=== PATIENT | female | born 1955 | race Caucasian/White ===

== ENCOUNTER 2018-03-08 15:56 | Observation (INO) | payer MEDICARE, BC, SELFPAY ==
[2018-03-08 15:57] VITALS: BP 143/89; PULSE 88; RESP 16; TEMP 36.8; O2SAT 98; BMI 32.1
--- NOTE | 2018-03-08 16:23 | CT_ITS ---
STUDY: CT BRAIN WITHOUT CONTRAST REASON FOR EXAM: Female, 62 years old. Severe headache since chemotherapy 5 days ago, nausea/vomiting. Adrenal cancer with mets. RADIATION DOSAGE (If Supplied By Facility): CTDIvol = ( 44.99 ) mGy, DLP = ( 779.24 ) mGycm TECHNIQUE: Transaxial CT imaging of the brain was performed without administration of intravenous contrast material. Individualized dose optimization techniques were used for this CT. COMPARISON: 04.04.16. FINDINGS: Normal soft tissue structures. Normal calvarium. There is asymmetry of the ventricles consistent with an anatomic variant. There are areas of decreased attenuation within the white matter tracts of the supratentorial brain, consistent with microvascular disease changes. Normal basal ganglia and thalami. Normal brainstem. Normal cerebellum. There is no intracranial hemorrhage. There are no findings of an acute ischemic infarction. Normal visualized paranasal sinuses. CT/Brain/Head without Contrast IMPRESSION: Minimal stable Chronic involutional changes of the brain. Electronically Signed: Eric Klein MD at 17:52 EDT , Service support ,
[2018-03-08] MEDS: 0.9% Normal Saline 1,000 ML 999 ML IV ×3 (16:39→19:47)
[2018-03-08] MEDS: Hydrocortisone Sod Succinate 100 MG/2 ML Vial IV (16:39)
[2018-03-08] MEDS: Morphine 4 MG/ML Syringe IV ×2 (16:42→19:46)
[2018-03-08] MEDS: Ondansetron 4 MG/2 ML Vial IV (16:46)
[2018-03-08 16:50] LABS: Absolute Lymphocyte Count 0.73 X10^3/ul (0.83-4.51); Basophil# 0.02 X10^3/uL; Basophil% 0.3 % (0-1); Eosinophil# 0.01 X10^3/uL; Eosinophils% 0.1 % (0-5); Hematocrit 32.6 % (37-47); Hemoglobin 10.4 g/dl (12.0-15.0); Lymphocyte # 0.73 X10^3/ul (4.0); Lymphocyte % 10.1 % (19-41); Mean Corp Hgb Conc 31.9 g/gl (32-36); Mean Corpuscular Hgb 27.7 pg (27.0-32.0); Mean Corpuscular Volume 86.9 fL (81-99); Mean Platelet Vol. 8.3 fl (6.2-12.0); Monocyte# 0.46 X10^3/uL; Monocyte% 6.4 % (0-10); Neutrophil # 5.99 X10^3/uL (2.7-7.7); Platelet Count 280 K/mm3 (150-450); RBC Distribution Width CV 14.2 % (11.6-14.6); Red Blood Count 3.75 M/mm3 (4.2-5.4); White Blood Count 7.2 K/mm3 (4.4-11.0)
[2018-03-08 16:57] LABS: POSITIVE COUNT NO; POSITIVE DIFFERENTIAL NO; POSITIVE MORPHOLOGY NO
[2018-03-08 17:05] LABS: International Normalized Ratio 0.9; Partial Thromboplast Time 32.4 Seconds (24.1-36.2); Prothrombin Time (Protime)PT. 12.4 SECONDS (11.7-14.9)
[2018-03-08 17:06] LABS: ALB/GLOB Ratio 0.6 RATIO (0.9-2.4); AST(SGOT) 19 U/L (15-37); Alanine Aminotransfer ALT/SGPT 19 U/L (13-56); Albumin, Serum 2.8 g/dL (3.2-5.0); Alkaline Phosphatase 71 U/L (45-117); Anion Gap 9 (5-15); BUN 24 mg/dL (7-18); BUN/Creat Ratio 23.3 RATIO (10-20); Calcium,Total 8.4 mg/dL (8.5-10.1); Chloride 96 mmol/L (98-107); Creatinine, Serum 1.03 mg/dL (0.55-1.02); EST Glomerular Filtration Rate 58 mL/min (>60); Est Glom Filt Rate - Afr Amer 70 mL/min (>60); Estimated Creatinine Clearance 43.28 ml/min; Globulin 4.4 g/dL (2.2-4.2); Glucose 89 mg/dL (74-106); Magnesium 1.7 mg/dL (1.6-2.6); Phosphorus 1.6 mg/dL (2.5-4.9); Potassium 4.4 mmol/L (3.5-5.1); Protein, Total 7.2 g/dL (6.4-8.2); Sodium Level 129 mmol/L (136-145)
--- NOTE | 2018-03-08 17:25 | RAD_ITS ---
STUDY: X-RAY CHEST REASON FOR EXAM: Female, 62 years old. COMPLAINS OF HEADACHE, DIARRHEA SINCE CHEMO TX ON FRIDAY, TODAY N/V. CONCERNED SHE'S DEHYDRATED. HX OF ADRENAL CARCINOMA STAGE IV, WITH METS TECHNIQUE: Frontal and lateral views of the chest. COMPARISON: June 16, 2016 FINDINGS: Chronic appearing increased interstitial lung markings. There is a right Port-A-Cath and/or mediport in place. The tip is in the superior vena cava. There is an elevated right hemidiaphragm. There is no demonstrated pleural abnormality. Normal heart size. Normal mediastinum and mai. Normal visualized pulmonary arteries. There is atherosclerotic calcification of the aortic arch with tortuosity. There are diffuse degenerative changes of the visualized thoracic spine. There is degenerative osteoarthritis of the bilateral shoulders. There is no demonstrated abnormality of the visualized soft tissue structures of the upper abdomen. RAD/Chest PA and Lateral IMPRESSION: There are no acute findings. Electronically Signed: Eric Klein MD at 17:37 EDT , Service support ,
[2018-03-08 18:00] VITALS: BP 137/87; PULSE 73; RESP 16; O2SAT 95
[2018-03-08 18:13] LABS: Bacteria 0 SEEN /hpf (None Seen); Mucous, Urine 0 SEEN /hpf (<or=2+); Red Blood Cells-Urine 0 SEEN /hpf (0-5); White Blood Cells 0 SEEN /hpf (0-5)
[2018-03-08 18:18] LABS: Color, Urine Yellow (Yellow); Glucose, Dipstick Normal (Normal); Ketone-Dipstick Negative (Negative); Leukocyte Esterase-Dipstick Negative /ul (Negative); Nitrite-Dipstick Negative (Negative); Occult Blood-Urine 10 /ul (Negative); Protein-Dipstick 30 mg/dl (Negative); Specific Gravity, Urine 1.005 (1.002-1.030); Urine Bilirubin Dipstick Negative (Negative); Urine Clarity Clear (Clear); Urine Urobilinogen Normal (Normal); Urine pH 6.5 (5.0 - 8.0)
[2018-03-08 18:31] LABS: Squamous Epithelial Cells - UA 0-5 SEEN /hpf (5-10)
[2018-03-08 19:56] VITALS: BP 153/99; PULSE 79; RESP 22; O2SAT 95
[2018-03-08 20:27] VITALS: BP 149/89; PULSE 80; RESP 17; O2SAT 93
--- NOTE | 2018-03-08 21:30 | HP.PCM_ITS ---
Problem List (1) Hyponatremia Status: Acute (2) Adrenal Bety's syndrome Status: Chronic (3) Adrenal carcinoma Status: Chronic Comment: liver, lung mets palliative chemo (4) Chronic anemia Status: Chronic (5) Hypokalemia Status: Chronic (6) Obesity (BMI 30-39.9) Status: Chronic (7) Resistant hypertension Status: Chronic Comment: secondary to Bety History of Present Illness Date of Admission: 03/08/18 Chief Complaint: Hyponatremia The patient is a 62 year old female w/ h/o terminal metastatic adrenal carcinoma , adrenal insufficiency, chronic anemia, adrenal bety's syndrome, and HTN admitted for hyponatremia. She has been getting mitotane and temsirolimus. She gets temsirolimus every Friday and after the infusion, she always gets a headache. The headache is diffuse dull aching and occasional sharp head pain. Nothing made it better or worse. It would past few a few hours over the next few days but would usually resolved by / Friday. However, this time her headache has been severe and constant. It is affecting her ADLs. She also has severe n/v associated with the headache. She has been not able to keep much PO down. She also has diarrhea for the past few days. Diarrhea is worsen when she gets the infusion. She would have 5-6 loose watery bowel movement a day. Past Medical History Past Medical History (Chronic Problems): Chronic Problems Resistant hypertension (Chronic) secondary to Bety Hypokalemia (Chronic) Chronic anemia (Chronic) MRSA pneumonia (Chronic) Obesity (BMI 30-39.9) (Chronic) Adrenal Bety's syndrome (Chronic) Adrenal carcinoma (Chronic) liver, lung mets palliative chemo Allergies Penicillins Allergy (Verified 03/08/18 15:59) Anaphylaxis adhesive tape Adverse Reaction (Verified 03/08/18 15:59) Other blisters Home Medications: Ambulatory Orders Medication Instructions Recorded Nystatin 500,000U/5ML [Mycostatin] 5 ml PO 4X/DAY PRN PRN 07/14/15 Clonazepam [Klonopin] 1 mg PO TID 09/15/15 Ondansetron [Zofran Odt] 8 mg PO Q8H PRN PRN #10 09/16/15 Levothyroxine [Synthroid] 75 mcg PO DAILY 10/18/15 Ipratropium/Albuterol Sulfate 3 ml INHALATION Q4H PRN PRN 11/01/15 [Duoneb] Potassium Chloride [K-Dur] 20 meq PO TID 03/28/16 traMADol [Ultram] 50 - 100 mg PO Q4H PRN PRN 03/28/16 Loperamide [Imodium] 2 mg PO Q6H PRN PRN 05/03/16 Pantoprazole Sodium [Protonix] 40 mg PO DAILY #30 tablet 05/05/16 Hydrocortisone [Cortef] 10 mg PO DINNER 06/12/16 Hydrocortisone [Cortef] 20.5 mg PO BREAKFAST 06/12/16 Magnesium Oxide [Mag-Ox 400] 400 mg PO DAILY 06/12/16 Ascorbic Acid [C-1000] 2,000 mg PO DAILY 03/08/18 Bmx Liquid 10 ml PO Q4H PRN PRN 03/08/18 Cholecalciferol (Vitamin D3) 2,000 unit PO DAILY 03/08/18 [Vitamin D3] Dexamethasone [Decadron] 10 ml PO 4X/DAY 03/08/18 DiphenhydrAMINE [Benadryl] 50 mg PO TID PRN PRN 03/08/18 Diphenoxylate HCl/Atropine 1 - 2 each PO Q6H PRN PRN 03/08/18 [Diphenoxylate-Atrop 2.5-0.025] Docusate Sodium [Colace] 100 mg PO BID 03/08/18 Fluticasone 0.05% [Flonase Nasal 2 spray NASAL DAILY 03/08/18 [place]] Hydrocodone Bitart/Apap 5-325 1 - 2 tablet PO Q6H PRN PRN 03/08/18 [[place] 5MG-325MG] Mitotane [Lysodren] 500 mg PO TID 03/08/18 [place]-3 Fatty Acids/Fish Oil [Fish 1 each PO QODAY 03/08/18 Oil 1,000 mg Capsule] Spironolactone [Aldactone] 50 mg PO BID 03/08/18 Ubidecarenone [Co Q-10] 200 mg PO 03/08/18 Surgical History: noncontributory Psychiatric History: Anxiety, Depression CHARGE WEIGHER History: No pertinent CHARGE WEIGHER history Smoking Status: Never smoker Alcohol: None Drugs: None - *Family History Maternal History Items: - - Multiple myeloma Paternal History Items: Cancer, No pertinent history Sibling History Items: Diabetes Review of Systems Constitutional: Denies: Chills, Fever, Weight Change HEENT: Denies: Head Aches, Sinus Congestion, Sinus Drainage Cardiovascular: Denies: Chest Pain, Palpitations Respiratory: Denies: Cough, Shortness of breath at rest, Sputum production Gastrointestinal: Denies: Abdominal Pain, Nausea, Vomiting Genitourinary: Denies: Dysuria Musculoskeletal: Denies: Joint Pain, Joint Tenderness Skin: Denies: Rash, Wounds Neurological: Denies: Numbness, Tingling, Focal weakness Psychiatric: Denies: Anxiety, Depression, Homicidal Ideations, Suicidal Ideations Hematologic/ Lymphatic: Denies: Easy Bruising, Easy Bleeding VTE Information - Inpt Only VTE Present on Admission: No VTE Mechan Device Prophylaxis: SCD's VTE Pharm Prophylaxis ordered?: Yes Patient Problems: Active and Suspected Problems Hyponatremia (Acute) - Physical Exam General: Alert, Oriented x3, Cooperative HEENT: Atraumatic, PERRLA, EOMI, Normocephalic Neck: Supple, No JVD, Negative Carotid Bruits Lungs: Clear to auscultation, Normal air movement Cardiovascular: Regular rate, No murmurs Abdomen: Bowel Sounds Present, Soft, Non Tender Extremities: No edema, Capillary Refill Less than 3 Seconds Skin: No rashes, No breakdown Musculoskeletal: No Tenderness to Palpation of Joints or Extremities Neurological: Cranial nerves II-XII grossly intact Psych/Mental Status: Normal Affect, Appropriate Vital Signs Temp Pulse Resp BP Pulse Ox 98.2 F 80 17 149/89 H 93 03/08/18 15:57 03/08/18 20:27 03/08/18 20:27 03/08/18 20:27 03/08/18 20:27 Assessment/Plan All Active Problems Hyponatremia (Acute) 62 year old female w/ h/o terminal metastatic adrenal carcinoma, adrenal insufficiency, chronic anemia, adrenal bety's syndrome, and HTN admitted for hyponatremia. 1) Hyponatremia: Suspect hypovolemia hyponatremia. Will hydrate. Will repeat labs in AM. Will send for urine osmol, serum osmol, urine Na, and TSH. Will consider further workup, ie SIADH, if no improvement. 2) Diarrhea: Suspect secondary to temsirolimus. Will send for C. diff. Monitor. 3) Chronic issues: terminal metastic adrenal carcinoma, adrenal insufficiency, chronic anemia, adrenal bety's syndrome, and HTN. Resume home meds. Hold temsirolimus and lysodren. 4) Prophylaxis: SCD / heparin.
[2018-03-08 21:53] VITALS: BMI 31.6
--- NOTE | 2018-03-08 22:45 | NURSING ---
Dae blood off pt's port without any difficulty. Lab work since.
[2018-03-08 23:15] VITALS: BP 127/66; PULSE 67; RESP 16; TEMP 36.7; O2SAT 94
[2018-03-08 23:28] LABS: Thyroid Stim Hormone (TSH) < 0.01 uIU/mL (0.358-3.74)
[2018-03-08] MEDS: Heparin Injection (Vial) 5,000 UNIT/ML VIAL 5000 UNIT SC (23:52)
[2018-03-08] MEDS: Spironolactone 50 MG Tablet PO (23:53)
[2018-03-08] MEDS: Acetaminophen 325 MG Tablet 650 MG PO (23:59)
[2018-03-08] MEDS: clonazePAM 1 MG Tablet PO (23:59)
[2018-03-09 00:10] LABS: Urine Sodium 61 mmol/L (Not Establ.)
[2018-03-09] MEDS: 0.9% NaCl VAD Flush 10 ML IV ×7 (00:20→13:01)
[2018-03-09 00:56] LABS: Osmolality, Urine 339 mOsm/KG
[2018-03-09 00:56] LABS: Osmolality, Serum 277 mOsm/KG (280-301)
--- NOTE | 2018-03-09 01:26 | ED.VISSUMM ---
- ER Visit Summary Date of Service: 03/09/18 Chief Complaint: Headache History of Present Illness: The patient is a [address] Park and Dr. Lomax. She has a history of adrenal cancer with metastases to liver and lungs. She has been on chemo since October. Her last dose was Friday. She reports that she typically gets sick the day of chemo and the next day. States that this week she is not bouncing back. She states that she has had a very poor appetite. She complains of abdominal pain that is chronic and unchanged. She has been nausea and vomited 5 times. No blood or emesis. She reports she has had diarrhea 4-5 times today and 3 times yesterday. No blood in her stools. She has had frequent urination but no dysuria. Patient reports that she has had a headache since her chemo that increases in the evening. She describes it as a throbbing, sharp pain that is 10 at 10 worsening 7-10 currently. Is worsened by bending over. She is sensitive to light. She taken [place] without relief. Is also taking Zofran without relief. Patient reports she is lightheadedness worsens when she stands. She has not had any syncope. She complains of generalized weakness. She has paresthesias that are chronic and unchanged. Of note patient has a history of adrenal insufficiency and is on hydrocortisone. She threw up her evening dose of hydrocortisone. Physical Examination: Vitals: Stable. Afebrile. General: Well-nourished and well-developed. Head: Normocephalic atraumatic. Neck: Supple, no lymphadenopathy. No JVD. Nontender. Cardiovascular: Regular rate and rhythm. No murmurs. Respiratory: No respiratory distress. Clear to auscultation bilaterally. Abdominal: Soft, mild diffuse tenderness to palpation, nondistended, normal bowel sounds. No guarding, rebound, or peritoneal signs. Back: Nontender. Extremities: Nontender, no edema. Skin: Normal color, no rash. Neurologic: Alert and oriented ?3. Cranial nerves II through XII are intact. Normal strength and sensation. Psych: Normal affect. Test Results: Chest x-ray shows chronic changes. CT brain shows chronic changes. CBC is marked for an H&H of 10.4 and 32.6, 7 neutrophils 83, lymphocytes 10. Chem-7 is more for sodium 129, chloride 96, BUN 24, creatinine 1.03. BUN creatinine ratio is 23.3. LFTs marked for albumin 2.8 globulin 4.4. Coags are normal. UA is normal. Emergency Department Course and Treatment: Patient was given 2 L normal saline. She was given Zofran, morphine, hydrocortisone IV. She continues to have a severe headache. Treatment Plan: Patient was discussed with Dr. Michael. She will be admitted to the hospital for further evaluation and treatment. Disposition: Admitted in improved condition Impression: 1. Renal cancer on chemotherapy. 2. Vomiting/diarrhea. 3. Dehydration. 4. Hyponatremia. 5. Cephalgia. This note was generated with [employer] dictation software. It may contain incorrect words, spelling, and punctuation that were not noted in review of the chart prior to signing ED Disposition - Plan for ED Patient: Disposition: Acute Care Hospital [facility] Chief Complaint: Nausea/Vomiting
[2018-03-09] MEDS: 0.9% Normal Saline 1,000 ML 125 ML IV ×2 (01:28→10:28)
[2018-03-09 02:04] VITALS: BMI 31.6
[2018-03-09] MEDS: Acetaminophen 325 MG Tablet 650 MG PO (04:29)
[2018-03-09 04:30] VITALS: BP 125/73; PULSE 85; RESP 18; TEMP 36.5; O2SAT 94
[2018-03-09] MEDS: Ondansetron ODT 4 MG Tablet 8 MG PO (04:34)
[2018-03-09] MEDS: clonazePAM 1 MG Tablet PO (06:06)
[2018-03-09] MEDS: Heparin Injection (Vial) 5,000 UNIT/ML VIAL 5000 UNIT SC (06:08)
[2018-03-09] MEDS: Levothyroxine 75 MCG Tablet PO (06:08)
[2018-03-09 06:52] LABS: Absolute Lymphocyte Count 0.63 X10^3/ul (0.83-4.51); Basophil# 0.01 X10^3/uL; Basophil% 0.2 % (0-1); Eosinophil# 0.07 X10^3/uL; Eosinophils% 1.7 % (0-5); Hematocrit 27.3 % (37-47); Hemoglobin 8.6 g/dl (12.0-15.0); Lymphocyte # 0.63 X10^3/ul (4.0); Lymphocyte % 14.9 % (19-41); Mean Corp Hgb Conc 31.5 g/gl (32-36); Mean Corpuscular Hgb 28.2 pg (27.0-32.0); Mean Corpuscular Volume 89.5 fL (81-99); Mean Platelet Vol. 8.3 fl (6.2-12.0); Monocyte# 0.51 X10^3/uL; Monocyte% 12.1 % (0-10); Neutrophil % 71.1 % (47-70); Platelet Count 269 K/mm3 (150-450); RBC Distribution Width SD 44.8 fl (35.1-43.9); Red Blood Count 3.05 M/mm3 (4.2-5.4); White Blood Count 4.2 K/mm3 (4.4-11.0)
[2018-03-09 07:03] LABS: POSITIVE COUNT NO; POSITIVE DIFFERENTIAL NO; POSITIVE MORPHOLOGY NO
[2018-03-09 07:04] LABS: Anion Gap 7 (5-15); BUN 16 mg/dL (7-18); BUN/Creat Ratio 19.5 RATIO (10-20); Calcium,Total 7.5 mg/dL (8.5-10.1); Chloride 109 mmol/L (98-107); Creatinine, Serum 0.82 mg/dL (0.55-1.02); EST Glomerular Filtration Rate 75 mL/min (>60); Est Glom Filt Rate - Afr Amer 91 mL/min (>60); Estimated Creatinine Clearance 54.37 ml/min; Glucose 72 mg/dL (74-106); Potassium 3.9 mmol/L (3.5-5.1); Sodium Level 139 mmol/L (136-145)
[2018-03-09] MEDS: Hydrocortisone 10 MG Tablet 25 MG PO (08:08)
[2018-03-09 10:09] VITALS: BP 105/58; PULSE 88; RESP 16; TEMP 36.7; O2SAT 95
--- NOTE | 2018-03-09 10:15 | PCM.PN.HOSP ---
Subjective: Patient is a 62-year-old female with a history of terminal metastatic adenocarcinoma, adrenal insufficiency, chronic anemia, Bernadette's syndrome and hypertension. She has been getting chemotherapy with mitotaine and temsirolimus. Patient was admitted with a plan of headache as well as an nausea and vomiting. She had also had assisted her for a few days. She was admitted and is being managed for hyponatremia and headache. Patient seen and examined. Still complains of a headache which is global in nature and usually occurs after chemotherapy. She denies fever or chills, any cough or chest pain, any shortness of breath, any abdominal pain. Diarrhea and vomiting have resolved since she was admitted. Vitals/I&O's: Vital Signs Temp Pulse Resp BP Pulse Ox 98.1 F 88 16 105/58 L 95 03/09/18 10:03/09/18 10:03/09/18 10:09 03/09/18 10:03/09/18 10:09 Oxygen Delivery Method Room Air Weight: 170 lb Body Mass Index (BMI) 31.6 Intake and Output for Last 24 Hours 03/07/18 03/08/18 03/09/18 23:59 23:59 23:59 Intake Total 1974 Output Total 300 / 300 Balance 1675 / 1675 General: Alert, Oriented x3, Cooperative, No apparent distress HEENT: Atraumatic, PERRLA, EOMI, Normocephalic Oral: Moist Mucosa Neck: Supple, No JVD, Negative Carotid Bruits Lungs: Clear to auscultation, Normal air movement, No rhonchi, No wheeze, No rales Cardiovascular: Regular rate, Regular Rhythm, Normal S1, Normal S2, No murmurs Abdomen: Bowel Sounds Present, Soft, Non Tender, Non-Distended, No Hepato-splenomegaly Extremities: No clubbing, No cyanosis, No edema, Capillary Refill Less than 3 Seconds Skin: No rashes, No breakdown Musculoskeletal: No Tenderness to Palpation of Joints or Extremities Lymphatic: No Cervical, Supraclavicular, or Inguinal Adenopathy Neurological: Cranial nerves II-XII grossly intact Psych/Mental Status: Normal Affect, Appropriate, Alert and oriented to time, place, person, mood and affect Laboratory Results 03/08/18 22:53: Troponin I < 0.015, TSH < 0.01 L 03/08/18 22:53: Serum Osmolality 277 L 03/08/18 22:53: CK Isoenzymes Pending, CK-MM (CK-3) Pending, CK-MB (CK-2) Pending, CK-BB (CK-1) Pending 03/08/18 23:35: Ur Random Sodium 61 03/08/18 23:35: Urine Osmolality 339 03/09/18 06:35: WBC 4.2 L, RBC 3.05 L, Hgb 8.6 L, Hct 27.3 L, MCV 89.5, MCH 28.2, MCHC 31.5 L, RDW 14.0, RDW Differential 44.8 H, Plt Count 269, MPV 8.3, Immature Gran % (Auto) 0.000, Neut % (Auto) 71.1 H, Lymph % (Auto) 14.9 L, [place] % (Auto) 12.1 H, Eos % (Auto) 1.7, Baso % (Auto) 0.2, Absolute Neuts (auto) 3.0, Absolute Lymphs (auto) 0.63 L, Total Counted Not Reportable 03/09/18 06:35: Sodium 139, Potassium 3.9, Chloride 109 H, Carbon Dioxide 23.0, Anion Gap 7, BUN 16, Creatinine 0.82, Estim Creat Clear Calc 54.37, Est GFR (MDRD) Af Amer 91, Est GFR (MDRD) Non-Af 75, BUN/Creatinine Ratio 19.5, Glucose 72 L, Calcium 7.5 L 03/09/18 06:35: Cortisol 19.50 Current Medications Acetaminophen (Tylenol) 650 mg PO Q4H PRN PRN PRN Reason: PAIN Last Admin: 03/09/18 04:29 Dose: 650 mg Albuterol/Ipratropium (Duoneb) 3 ml INHALATION Q4H PRN PRN PRN Reason: SHORTNESS OF BREATH Ascorbic Acid (Vitamin C) 2,000 mg PO DAILY [facility]IK Cholecalciferol (Vitamin D) 2,000 unit PO DAILY [facility]IK Clonazepam (Klonopin) 1 mg PO TID MALIK Last Admin: 03/09/18 06:06 Dose: 1 mg Dexamethasone (Dexamethasone Intensol) 1 mg PO 4X/DAY PRN PRN Diphenhydramine HCl (Benadryl) 50 mg PO TID PRN PRN PRN Reason: ITCHING Fluticasone Propionate (Flonase Nasal [place]) 2 spray NASAL DAILY [facility] Heparin Sodium (Beef Lung) (Heparin 500 Unit/5 Ml (100/Ml)) 500 unit IV UD PRN PRN Reason: HEPARIN FLUSH Heparin Sodium (Porcine) (Heparin Na) 5,000 unit SC Q8 [facility] Last Admin: 03/09/18 06:08 Dose: 5,000 units Hydrocortisone (Cortef) 10 mg PO DINNER [facility] Hydrocortisone (Cortef) 25 mg PO BREAKFAST [facility] Last Admin: 03/09/18 08:08 Dose: 25 mg Sodium Chloride () 1,000 mls @ 125 mls/hr IV .Q8H [facility] Last Admin: 03/09/18 01:28 Dose: 125 mls/hr Levothyroxine Sodium (Synthroid) 75 mcg PO DAILY@0600 [facility] Last Admin: 03/09/18 06:08 Dose: 75 mcg Lidocaine/Diphenhydr/Alum/Mg/Simeth () 10 ml PO Q4H PRN PRN PRN Reason: sores Loperamide HCl (Imodium) 2 mg PO Q6H PRN PRN PRN Reason: diarrhea Magnesium Hydroxide (Milk Of Magnesia) 30 ml PO DAILY PRN PRN PRN Reason: Constipation Nutritional Formula (Lactose Free) (Ensure Enlive) 120 ml PO 4X/DAY [facility] Nystatin (Nystatin) 500,000 unit PO 4X/DAY PRN PRN PRN Reason: mouth discomfort [id number] Ethyl Esters (Lov[place]) 1 gm PO QODAY [facility] Ondansetron HCl (Zofran Odt) 8 mg PO Q8H PRN PRN PRN Reason: NAUSEA Last Admin: 03/09/18 04:34 Dose: 8 mg Pantoprazole Sodium (Protonix) 40 mg PO DAILY [facility] Potassium Chloride (K-Dur) 20 meq PO TID [facility] Last Admin: 03/09/18 06:07 Dose: 20 meq Sodium Chloride () 10 ml IV UD PRN PRN Reason: VAD FLUSH Last Admin: 03/09/18 06:32 Dose: 10 ml Spironolactone (Aldactone) 50 mg PO BID [facility] Last Admin: 03/08/18 23:53 Dose: 50 mg Medical Necessity - Tobacco Use Smoking Status: Former smoker Assessment/Plan All Active Problems Hyponatremia (Acute) 62 y/o female with a history of terminal metastatic adrenal carcinoma, adrenal insufficiency and chronic anemia, as well as Makanda's syndrome and HTN. She was admitted with a complaint of diarrhea, vomiting and headache. 1. Hypovolemic hyponatremia due to diarrhea and vomiting. Seen and examined. Diarrhea and vomiting have resolved. Hyponatremia has resolved and sodium is now 139 serum osmolality was 277 which confirms hypovolemic hypotonic hyponatremia will monitor ZOfran prn for vomiting 2. Diarrhea likely a side effect of the chemotherapy (temsirolimus) resolved. Diarrhea has resolved, and patient is not having any more diarrhea unable to do C Diff as diarrhea has resolved 3. Metastatic adrenal carcinoma with adrenal insufficiency Stable. Having chemotherapy. Next Chemotherapy session is tomorrow. And want her to have a break from chemotherapy as they think that she is suffering from too many side effects from it. To have discussion with Dr Sanchez about chemotherapy. Next session is tomorrow. 4. Headache Has headache which usually occurs after chemotherapy. Also takes several pain meds including Tylenol and [place] for pain which may be contribution to medication overuse headache. I counseled patient about cutting back on her pain meds. She also said that headache is worsened and assisted with light. This sounds micronized in nature and so she is now willing to get on his pain meds will add on Fioricet for a few days to see how she does. Prescription for Fioricet given for 20 tablets. 0ARRS checked,no red flags seen. Had a head CT which showed normal soft tissues and normal calvarium, with minimal stable chronic involutional changes of the brain. 5. Chronic anemia: stable on iron replacements 6. hypertension: controlled. on spironolactone. 7. Adrenal insufficiency: on hydrocortisone and dexamethasone 8. hypothyroidism: on synthroid. 9. DVT prophylaxis: heparin 10. GI prophylaxis: PPI Disposition: will dc home today. To follow up with PCP and oncologist. This note was generated with [employer] software. It may contain incorrect words, spelling, and punctuation that were not noted in checking the note before signing. Code Visit OBSV E&M: 22431 Subsequent observation care L3
--- NOTE | 2018-03-09 10:34 | PN_ITS ---
Subjective: Patient is a 62-year-old female with a history of terminal metastatic adenocarcinoma, adrenal insufficiency, chronic anemia, Bernadette's syndrome and hypertension. She has been getting chemotherapy with mitotaine and temsirolimus. Patient was admitted with a plan of headache as well as an nausea and vomiting. She had also had assisted her for a few days. She was admitted and is being managed for hyponatremia and headache. Patient seen and examined. Still complains of a headache which is global in nature and usually occurs after chemotherapy. She denies fever or chills, any cough or chest pain, any shortness of breath, any abdominal pain. Diarrhea and vomiting have resolved since she was admitted. Vitals/I&O's: Vital Signs Temp Pulse Resp BP Pulse Ox 98.1 F 88 16 105/58 L 95 03/09/18 10:03/09/18 10:03/09/18 10:09 03/09/18 10:03/09/18 10:09 Oxygen Delivery Method Room Air Weight: 170 lb Body Mass Index (BMI) 31.6 Intake and Output for Last 24 Hours 03/07/18 03/08/18 03/09/18 23:59 23:59 23:59 Intake Total 1974 Output Total 300 / 300 Balance 1675 / 1675 General: Alert, Oriented x3, Cooperative, No apparent distress HEENT: Atraumatic, PERRLA, EOMI, Normocephalic Oral: Moist Mucosa Neck: Supple, No JVD, Negative Carotid Bruits Lungs: Clear to auscultation, Normal air movement, No rhonchi, No wheeze, No rales Cardiovascular: Regular rate, Regular Rhythm, Normal S1, Normal S2, No murmurs Abdomen: Bowel Sounds Present, Soft, Non Tender, Non-Distended, No Hepato- splenomegaly Extremities: No clubbing, No cyanosis, No edema, Capillary Refill Less than 3 Seconds Skin: No rashes, No breakdown Musculoskeletal: No Tenderness to Palpation of Joints or Extremities Lymphatic: No Cervical, Supraclavicular, or Inguinal Adenopathy Neurological: Cranial nerves II-XII grossly intact Psych/Mental Status: Normal Affect, Appropriate, Alert and oriented to time, place, person, mood and affect Laboratory Results 03/08/18 22:53: Troponin I < 0.015, TSH < 0.01 L 03/08/18 22:53: Serum Osmolality 277 L 03/08/18 22:53: CK Isoenzymes Pending, CK-MM (CK-3) Pending, CK-MB (CK-2) Pending, CK-BB (CK-1) Pending 03/08/18 23:35: Ur Random Sodium 61 03/08/18 23:35: Urine Osmolality 339 03/09/18 06:35: WBC 4.2 L, RBC 3.05 L, Hgb 8.6 L, Hct 27.3 L, MCV 89.5, MCH 28.2 , MCHC 31.5 L, RDW 14.0, RDW Differential 44.8 H, Plt Count 269, MPV 8.3, Immature Gran % (Auto) 0.000, Neut % (Auto) 71.1 H, Lymph % (Auto) 14.9 L, [place] % (Auto) 12.1 H, Eos % (Auto) 1.7, Baso % (Auto) 0.2, Absolute Neuts (auto) 3.0 , Absolute Lymphs (auto) 0.63 L, Total Counted Not Reportable 03/09/18 06:35: Sodium 139, Potassium 3.9, Chloride 109 H, Carbon Dioxide 23.0, Anion Gap 7, BUN 16, Creatinine 0.82, Estim Creat Clear Calc 54.37, Est GFR ( MDRD) Af Amer 91, Est GFR (MDRD) Non-Af 75, BUN/Creatinine Ratio 19.5, Glucose 72 L, Calcium 7.5 L 03/09/18 06:35: Cortisol 19.50 Current Medications Acetaminophen (Tylenol) 650 mg PO Q4H PRN PRN PRN Reason: PAIN Last Admin: 03/09/18 04:29 Dose: 650 mg Albuterol/Ipratropium (Duoneb) 3 ml INHALATION Q4H PRN PRN PRN Reason: SHORTNESS OF BREATH Ascorbic Acid (Vitamin C) 2,000 mg PO DAILY MALIK Cholecalciferol (Vitamin D) 2,000 unit PO DAILY MALIK Clonazepam (Klonopin) 1 mg PO TID MALIK Last Admin: 03/09/18 06:06 Dose: 1 mg Dexamethasone (Dexamethasone Intensol) 1 mg PO 4X/DAY PRN PRN Diphenhydramine HCl (Benadryl) 50 mg PO TID PRN PRN PRN Reason: ITCHING Fluticasone Propionate (Flonase Nasal [place]) 2 spray NASAL DAILY [facility] Heparin Sodium (Beef Lung) (Heparin 500 Unit/5 Ml (100/Ml)) 500 unit IV UD PRN PRN Reason: HEPARIN FLUSH Heparin Sodium (Porcine) (Heparin Na) 5,000 unit SC Q8 [facility] Last Admin: 03/09/18 06:08 Dose: 5,000 units Hydrocortisone (Cortef) 10 mg PO DINNER [facility] Hydrocortisone (Cortef) 25 mg PO BREAKFAST [facility] Last Admin: 03/09/18 08:08 Dose: 25 mg Sodium Chloride () 1,000 mls @ 125 mls/hr IV .Q8H [facility] Last Admin: 03/09/18 01:28 Dose: 125 mls/hr Levothyroxine Sodium (Synthroid) 75 mcg PO DAILY@0600 [facility] Last Admin: 03/09/18 06:08 Dose: 75 mcg Lidocaine/Diphenhydr/Alum/Mg/Simeth () 10 ml PO Q4H PRN PRN PRN Reason: sores Loperamide HCl (Imodium) 2 mg PO Q6H PRN PRN PRN Reason: diarrhea Magnesium Hydroxide (Milk Of Magnesia) 30 ml PO DAILY PRN PRN PRN Reason: Constipation Nutritional Formula (Lactose Free) (Ensure Enlive) 120 ml PO 4X/DAY [facility] Nystatin (Nystatin) 500,000 unit PO 4X/DAY PRN PRN PRN Reason: mouth discomfort Silbx-5-[id number] Ethyl Esters (Lovaza) 1 gm PO QODAY [facility] Ondansetron HCl (Zofran Odt) 8 mg PO Q8H PRN PRN PRN Reason: NAUSEA Last Admin: 03/09/18 04:34 Dose: 8 mg Pantoprazole Sodium (Protonix) 40 mg PO DAILY [facility] Potassium Chloride (K-Dur) 20 meq PO TID [facility] Last Admin: 03/09/18 06:07 Dose: 20 meq Sodium Chloride () 10 ml IV UD PRN PRN Reason: VAD FLUSH Last Admin: 03/09/18 06:32 Dose: 10 ml Spironolactone (Aldactone) 50 mg PO BID [facility] Last Admin: 03/08/18 23:53 Dose: 50 mg Medical Necessity - Tobacco Use Smoking Status: Former smoker Assessment/Plan All Active Problems Hyponatremia (Acute) 62 y/o female with a history of terminal metastatic adrenal carcinoma, adrenal insufficiency and chronic anemia, as well as Bernadette's syndrome and HTN. She was admitted with a complaint of diarrhea, vomiting and headache. 1. Hypovolemic hyponatremia due to diarrhea and vomiting. * Seen and examined. Diarrhea and vomiting have resolved. * Hyponatremia has resolved and sodium is now 139 serum osmolality was 277 which confirms hypovolemic hypotonic hyponatremia * will monitor * ZOfran prn for vomiting * 2. Diarrhea likely a side effect of the chemotherapy (temsirolimus) * resolved. Diarrhea has resolved, and patient is not having any more diarrhea * unable to do C Diff as diarrhea has resolved * 3. Metastatic adrenal carcinoma with adrenal insufficiency * Stable. Having chemotherapy. * Next Chemotherapy session is tomorrow. And want her to have a break from chemotherapy as they think that she is suffering from too many side effects from it. * To have discussion with Dr Sanchez about chemotherapy. Next session is tomorrow. * 4. Headache * Has headache which usually occurs after chemotherapy. * Also takes several pain meds including Tylenol and [place] for pain which may be contribution to medication overuse headache. I counseled patient about cutting back on her pain meds. She also said that headache is worsened and assisted with light. This sounds micronized in nature and so she is now willing to get on his pain meds will add on Fioricet for a few days to see how she does. * Prescription for Fioricet given for 20 tablets. 0ARRS checked,no red flags seen. * Had a head CT which showed normal soft tissues and normal calvarium, with minimal stable chronic involutional changes of the brain. * 5. Chronic anemia: stable on iron replacements 6. hypertension: controlled. on spironolactone. 7. Adrenal insufficiency: on hydrocortisone and dexamethasone 8. hypothyroidism: on synthroid. 9. DVT prophylaxis: heparin 10. GI prophylaxis: PPI Disposition: will dc home today. To follow up with PCP and oncologist. This note was generated with [employer] software. It may contain incorrect words, spelling, and punctuation that were not noted in checking the note before signing. Code Visit OBSV E&M: 58232 Subsequent observation care L3
[2018-03-09] MEDS: Spironolactone 50 MG Tablet PO (10:37)
[2018-03-09] MEDS: Pantoprazole Sodium 40 MG Tablet PO (10:37)
--- NOTE | 2018-03-09 11:41 | PCM.DC ---
- Discharge Diagnoses Current Active Problems: Current Active and Chronic Problems Hyponatremia (Acute) You will use the following diet at home:: No restrictions Your food should be the consistency of: Regular Your liquids should be the consistency of: Regular/Thin Discharge Activity: Return to Normal Activity Weight Bearing Status: Weight bearing as tolerated Call your doctor if you observe: - - worsening headache Allergies/Adverse Reactions: Allergies Penicillins Allergy (Verified 03/08/18 15:59) Anaphylaxis adhesive tape Adverse Reaction (Verified 03/08/18 15:59) Other blisters Medications to take at Discharge Nystatin 500,000U/5ML [Mycostatin] 5 ml PO 4X/DAY PRN PRN 07/14/15 Clonazepam [Klonopin] 1 mg PO TID PRN 09/15/15 Ondansetron [Zofran Odt] 8 mg PO Q8H PRN PRN #10 09/16/15 Levothyroxine [Synthroid] 75 mcg PO DAILY 10/18/15 Ipratropium/Albuterol Sulfate [Duoneb] 3 ml INHALATION Q4H PRN PRN 11/01/15 Potassium Chloride [K-Dur] 20 meq PO TID 03/28/16 traMADol [Ultram] 50 - 100 mg PO Q4H PRN PRN 03/28/16 Loperamide [Imodium] 2 mg PO Q6H PRN PRN 05/03/16 Hydrocortisone [Cortef] 10 mg PO LUNCH 06/12/16 Hydrocortisone [Cortef] 25 mg PO BREAKFAST 06/12/16 Magnesium Oxide [Mag-Ox 400] 400 mg PO DAILY 06/12/16 Bmx Liquid 10 ml PO Q4H PRN PRN 03/08/18 Dexamethasone [Decadron] 10 ml PO 4X/DAY PRN 03/08/18 DiphenhydrAMINE [Benadryl] 50 mg PO TID PRN PRN 03/08/18 Diphenoxylate HCl/Atropine [Diphenoxylate-Atrop 2.5-0.025] 1 - 2 each PO Q6H PRN PRN 03/08/18 Docusate Sodium [Colace] 100 mg PO DAILY 03/08/18 Fluticasone 0.05% [Flonase Nasal [place]] 2 spray NASAL DAILY 03/08/18 Hydrocodone Bitart/Apap 5-325 [[place] 5/325] 1 - 2 tablet PO Q6H PRN PRN 03/08/18 Mitotane [Lysodren] 500 mg PO TID 03/08/18 [place]-3 Fatty Acids/Fish Oil [Fish Oil 1,000 mg Capsule] 1 each PO DAILY 03/08/18 Pantoprazole Sodium [Protonix] 40 mg PO DAILY 03/08/18 Spironolactone [Aldactone] 50 mg PO BID 03/08/18 Acetaminophen/Butalbital/Caffe [Fioricet] 1 tablet PO Q4H PRN PRN #20 tablet 03/09/18 The following prescriptions were given: Acetaminophen/Butalbital/Caffe [Fioricet] 1 tablet PO Q4H PRN PRN #20 tablet PRN Reason: Headache Primary Care Physician: Rico Lomax MD [Primary Care Provider] - Test Results: Test results from this visit will be discussed in further detail at your follow-up appointment, if applicable. Please Follow Up With: Kurt Sanchez DO When: one week Proposed Discharge Date: 03/09/18
[2018-03-09 12:45] VITALS: BP 124/73; PULSE 84; RESP 20; TEMP 36.6; O2SAT 96
--- NOTE | 2018-03-09 14:11 | PCM.DC.SUM ---
Discharge Date and Diagnosis Date of Admission: 03/08/18 Date of Discharge: 03/09/18 - Secondary Discharge Diagnosis Chronic Problems Resistant hypertension (Chronic) secondary to [place] Hypokalemia (Chronic) Chronic anemia (Chronic) MRSA pneumonia (Chronic) Obesity (BMI 30-39.9) (Chronic) Adrenal Bernadette's syndrome (Chronic) Adrenal carcinoma (Chronic) liver, lung mets palliative chemo Hospital Course and Treatment Imaging Results: Diagnostic Data Brain CT 03/08/18 16:23 IMPRESSION: Minimal stable Chronic involutional changes of the brain. Electronically Signed: Eric Klein MD at 17:52 EDT , Service support , Chest X-Ray 03/08/18 17:25 IMPRESSION: There are no acute findings. Electronically Signed: Eric Klein MD at 17:37 EDT , Service support , Laboratory Tests 03/08/18 03/08/18 03/08/18 16:38 16:38 16:38 WBC 7.2 RBC 3.75 L Hgb 10.4 L Hct 32.6 L MCV 86.9 MCH 27.7 MCHC 31.9 L RDW 14.2 RDW Differential 45.0 H Plt Count 280 MPV 8.3 Immature Gran % (Auto) 0.100 Neut % (Auto) 83.0 H Lymph % (Auto) 10.[address] [place] % (Auto) 6.4 Eos % (Auto) 0.1 Baso % (Auto) 0.3 Absolute Neuts (auto) 6.0 Absolute Lymphs (auto) 0.73 L Total Counted Not Reportable PT 12.4 INR 0.9 APTT 32.4 Sodium 129 L Potassium 4.4 Chloride 96 L Carbon Dioxide 24.0 Anion Gap 9 BUN 24 H Creatinine 1.03 H Estim Creat Clear Calc 43.28 Est GFR (MDRD) Af Amer 70 Est GFR (MDRD) Non-Af 58 L BUN/Creatinine Ratio 23.3 H Glucose 89 Serum Osmolality Calcium 8.4 L Phosphorus 1.6 L Magnesium 1.7 Total Bilirubin 0.30 AST 19 ALT 19 Alkaline Phosphatase 71 Troponin I Total Protein 7.2 Albumin 2.8 L Globulin 4.4 H Albumin/Globulin Ratio 0.6 L TSH Cortisol Urine Color Urine Clarity Urine pH Ur Specific [place] Urine Protein Urine Glucose (UA) Urine Ketones Urine Occult Blood Urine Nitrite Urine Bilirubin Urine Urobilinogen Ur Leukocyte Esterase Urine RBC Urine WBC Ur Squamous Epith Cells Urine Bacteria Urine Mucus Urine Osmolality Ur Random Sodium 03/08/18 03/08/18 03/08/18 18:10 22:53 22:53 WBC RBC Hgb Hct MCV MCH MCHC RDW RDW Differential Plt Count MPV Immature Gran % (Auto) Neut % (Auto) Lymph % (Auto) [place] % (Auto) Eos % (Auto) Baso % (Auto) Absolute Neuts (auto) Absolute Lymphs (auto) Total Counted PT INR APTT Sodium Potassium Chloride Carbon Dioxide Anion Gap BUN Creatinine Estim Creat Clear Calc Est GFR (MDRD) Af Amer Est GFR (MDRD) Non-Af BUN/Creatinine Ratio Glucose Serum Osmolality 277 L Calcium Phosphorus Magnesium Total Bilirubin AST ALT Alkaline Phosphatase Troponin I < 0.015 Total Protein Albumin Globulin Albumin/Globulin Ratio TSH < 0.01 L Cortisol Urine Color Yellow Urine Clarity Clear Urine pH 6.5 Ur Specific [place] 1.005 Urine Protein 30 H Urine Glucose (UA) Normal Urine Ketones Negative Urine Occult Blood 10 H Urine Nitrite Negative Urine Bilirubin Negative Urine Urobilinogen Normal Ur Leukocyte Esterase Negative Urine RBC 0 SEEN Urine WBC 0 SEEN Ur Squamous Epith Cells 0-5 SEEN Urine Bacteria 0 SEEN Urine Mucus 0 SEEN Urine Osmolality Ur Random Sodium 03/08/18 03/08/18 03/09/18 23:35 23:35 06:35 WBC 4.2 L RBC 3.05 L Hgb 8.6 L Hct 27.3 L MCV 89.5 MCH 28.2 MCHC 31.5 L RDW 14.0 RDW Differential 44.8 H Plt Count 269 MPV 8.3 Immature Gran % (Auto) 0.000 Neut % (Auto) 71.1 H Lymph % (Auto) 14.[address] % (Auto) 12.1 H Eos % (Auto) 1.7 Baso % (Auto) 0.2 Absolute Neuts (auto) 3.0 Absolute Lymphs (auto) 0.63 L Total Counted Not Reportable PT INR APTT Sodium Potassium Chloride Carbon Dioxide Anion Gap BUN Creatinine Estim Creat Clear Calc Est GFR (MDRD) Af Amer Est GFR (MDRD) Non-Af BUN/Creatinine Ratio Glucose Serum Osmolality Calcium Phosphorus Magnesium Total Bilirubin AST ALT Alkaline Phosphatase Troponin I Total Protein Albumin Globulin Albumin/Globulin Ratio TSH Cortisol Urine Color Urine Clarity Urine pH Ur Specific [place] Urine Protein Urine Glucose (UA) Urine Ketones Urine Occult Blood Urine Nitrite Urine Bilirubin Urine Urobilinogen Ur Leukocyte Esterase Urine RBC Urine WBC Ur Squamous Epith Cells Urine Bacteria Urine Mucus Urine Osmolality 339 Ur Random Sodium 61 03/09/18 03/09/18 06:35 06:35 WBC RBC Hgb Hct MCV MCH MCHC RDW RDW Differential Plt Count MPV Immature Gran % (Auto) Neut % (Auto) Lymph % (Auto) [place] % (Auto) Eos % (Auto) Baso % (Auto) Absolute Neuts (auto) Absolute Lymphs (auto) Total Counted PT INR APTT Sodium 139 Potassium 3.9 Chloride 109 H Carbon Dioxide 23.0 Anion Gap 7 BUN 16 Creatinine 0.82 Estim Creat Clear Calc 54.37 Est GFR (MDRD) Af Amer 91 Est GFR (MDRD) Non-Af 75 BUN/Creatinine Ratio 19.5 Glucose 72 L Serum Osmolality Calcium 7.5 L Phosphorus Magnesium Total Bilirubin AST ALT Alkaline Phosphatase Troponin I Total Protein Albumin Globulin Albumin/Globulin Ratio TSH Cortisol 19.50 Urine Color Urine Clarity Urine pH Ur Specific [place] Urine Protein Urine Glucose (UA) Urine Ketones Urine Occult Blood Urine Nitrite Urine Bilirubin Urine Urobilinogen Ur Leukocyte Esterase Urine RBC Urine WBC Ur Squamous Epith Cells Urine Bacteria Urine Mucus Urine Osmolality Ur Random Sodium Operations: None Procedures: EKG Summary of Care Provided: Patient is a 62-year-old female with a history of terminal metastatic adenocarcinoma, adrenal insufficiency, chronic anemia, [place]'s syndrome and hypertension. She has been getting chemotherapy with mitotaine and temsirolimus. Patient was admitted with a plan of headache as well as an nausea and vomiting on 03/08/2018. Sodium was found to be 129 on admission. She was admitted and managed for hyponatremia and headache. She was given IV fluids. Sodium corrected to 139. Labs otherwise remained stable. On further inquiry patient stated that she had been using a whole lot of pain medication such as [place] and Tylenol for her pain but the headache still persisted. I counseled patient that her headache may be due to medication overuse headache the patient stated that she could not stop using the pain meds she also stated that she has some photophobia with the pain. She felt comfortable to go home after sodium was corrected. Patient discharged home on 03/09/2018 with a prescription for Fioricet. OARRS checked and no red flags seen. Patient and stated that he felt she needed to take some time off of the chemotherapy as they knew that have malignancy was metastatic and terminal with no hope of acute and feels that the side effects she was getting from the chemotherapy mainly the nausea vomiting and the headache was too much for her to bear. They wanted to discuss this with Dr. Sanchez and would call his office to speak to him. Patient was discharged home on 03/09/18, to follow up with her PCP and oncologist. Discharge Activity: Return to Normal Activity Weight Bearing Status: Weight bearing as tolerated Call your doctor if you observe: - - worsening headache Home Medications: Medications to take at Discharge Nystatin 500,000U/5ML [Mycostatin] 5 ml PO 4X/DAY PRN PRN 07/14/15 Clonazepam [Klonopin] 1 mg PO TID PRN 09/15/15 Ondansetron [Zofran Odt] 8 mg PO Q8H PRN PRN #10 09/16/15 Levothyroxine [Synthroid] 75 mcg PO DAILY 10/18/15 Ipratropium/Albuterol Sulfate [Duoneb] 3 ml INHALATION Q4H PRN PRN 11/01/15 Potassium Chloride [K-Dur] 20 meq PO TID 03/28/16 traMADol [Ultram] 50 - 100 mg PO Q4H PRN PRN 03/28/16 Loperamide [Imodium] 2 mg PO Q6H PRN PRN 05/03/16 Hydrocortisone [Cortef] 10 mg PO LUNCH 06/12/16 Hydrocortisone [Cortef] 25 mg PO BREAKFAST 06/12/16 Magnesium Oxide [Mag-Ox 400] 400 mg PO DAILY 06/12/16 Bmx Liquid 10 ml PO Q4H PRN PRN 03/08/18 Dexamethasone [Decadron] 10 ml PO 4X/DAY PRN 03/08/18 DiphenhydrAMINE [Benadryl] 50 mg PO TID PRN PRN 03/08/18 Diphenoxylate HCl/Atropine [Diphenoxylate-Atrop 2.5-0.025] 1 - 2 each PO Q6H PRN PRN 03/08/18 Docusate Sodium [Colace] 100 mg PO DAILY 03/08/18 Fluticasone 0.05% [Flonase Nasal [place]] 2 spray NASAL DAILY 03/08/18 Hydrocodone Bitart/Apap 5-325 [[place] 5/325] 1 - 2 tablet PO Q6H PRN PRN 03/08/18 Mitotane [Lysodren] 500 mg PO TID 03/08/18 [place]-3 Fatty Acids/Fish Oil [Fish Oil 1,000 mg Capsule] 1 each PO DAILY 03/08/18 Pantoprazole Sodium [Protonix] 40 mg PO DAILY 03/08/18 Spironolactone [Aldactone] 50 mg PO BID 03/08/18 Acetaminophen/Butalbital/Caffe [Fioricet] 1 tablet PO Q4H PRN PRN #20 tablet 03/09/18 Following Prescrptions Were Given to Patient: Acetaminophen/Butalbital/Caffe [Fioricet] 1 tablet PO Q4H PRN PRN #20 tablet PRN Reason: Headache Please follow up with your Primary Care Physician in: one week Please Follow Up With: Kurt Sanchez DO When: one week Medical Necessity - Tobacco Use Smoking Status: Former smoker Meaningful Use Info Meaningful Use Diagnoses (Choose all that apply): None applicable Code Visit Inpatient E&M: 70306 Disch Hosp
--- NOTE | 2018-03-09 14:18 | DS.PCM_ITS ---
Discharge Date and Diagnosis Date of Admission: 03/08/18 Date of Discharge: 03/09/18 - Secondary Discharge Diagnosis Chronic Problems Resistant hypertension (Chronic) secondary to [place] Hypokalemia (Chronic) Chronic anemia (Chronic) MRSA pneumonia (Chronic) Obesity (BMI 30-39.9) (Chronic) Adrenal Bernadette's syndrome (Chronic) Adrenal carcinoma (Chronic) liver, lung mets palliative chemo Hospital Course and Treatment Imaging Results: Diagnostic Data Brain CT 03/08/18 16:23 IMPRESSION: Minimal stable Chronic involutional changes of the brain. Electronically Signed: Eric Klein MD at 17:52 EDT , Service support , Chest X-Ray 03/08/18 17:25 IMPRESSION: There are no acute findings. Electronically Signed: Eric Klein MD at 17:37 EDT , Service support , Laboratory Tests 03/08/18 03/08/18 03/08/18 16:38 16:38 16:38 WBC 7.2 RBC 3.75 L Hgb 10.4 L Hct 32.6 L MCV 86.9 MCH 27.7 MCHC 31.9 L RDW 14.2 RDW Differential 45.0 H Plt Count 280 MPV 8.3 Immature Gran % (Auto) 0.100 Neut % (Auto) 83.0 H Lymph % (Auto) 10.1 L [place] % (Auto) 6.4 Eos % (Auto) 0.1 Baso % (Auto) 0.3 Absolute Neuts (auto) 6.0 Absolute Lymphs (auto) 0.73 L Total Counted Not Reportable PT 12.4 INR 0.9 APTT 32.4 Sodium 129 L Potassium 4.4 Chloride 96 L Carbon Dioxide 24.0 Anion Gap 9 BUN 24 H Creatinine 1.03 H Estim Creat Clear Calc 43.28 Est GFR (MDRD) Af Amer 70 Est GFR (MDRD) Non-Af 58 L BUN/Creatinine Ratio 23.3 H Glucose 89 Serum Osmolality Calcium 8.4 L Phosphorus 1.6 L Magnesium 1.7 Total Bilirubin 0.30 AST 19 ALT 19 Alkaline Phosphatase 71 Troponin I Total Protein 7.2 Albumin 2.8 L Globulin 4.4 H Albumin/Globulin Ratio 0.6 L TSH Cortisol Urine Color Urine Clarity Urine pH Ur Specific [place] Urine Protein Urine Glucose (UA) Urine Ketones Urine Occult Blood Urine Nitrite Urine Bilirubin Urine Urobilinogen Ur Leukocyte Esterase Urine RBC Urine WBC Ur Squamous Epith Cells Urine Bacteria Urine Mucus Urine Osmolality Ur Random Sodium 03/08/18 03/08/18 03/08/18 18:10 22:53 22:53 WBC RBC Hgb Hct MCV MCH MCHC RDW RDW Differential Plt Count MPV Immature Gran % (Auto) Neut % (Auto) Lymph % (Auto) [place] % (Auto) Eos % (Auto) Baso % (Auto) Absolute Neuts (auto) Absolute Lymphs (auto) Total Counted PT INR APTT Sodium Potassium Chloride Carbon Dioxide Anion Gap BUN Creatinine Estim Creat Clear Calc Est GFR (MDRD) Af Amer Est GFR (MDRD) Non-Af BUN/Creatinine Ratio Glucose Serum Osmolality 277 L Calcium Phosphorus Magnesium Total Bilirubin AST ALT Alkaline Phosphatase Troponin I < 0.015 Total Protein Albumin Globulin Albumin/Globulin Ratio TSH < 0.01 L Cortisol Urine Color Yellow Urine Clarity Clear Urine pH 6.5 Ur Specific [place] 1.005 Urine Protein 30 H Urine Glucose (UA) Normal Urine Ketones Negative Urine Occult Blood 10 H Urine Nitrite Negative Urine Bilirubin Negative Urine Urobilinogen Normal Ur Leukocyte Esterase Negative Urine RBC 0 SEEN Urine WBC 0 SEEN Ur Squamous Epith Cells 0-5 SEEN Urine Bacteria 0 SEEN Urine Mucus 0 SEEN Urine Osmolality Ur Random Sodium 03/08/18 03/08/18 03/09/18 23:35 23:35 06:35 WBC 4.2 L RBC 3.05 L Hgb 8.6 L Hct 27.3 L MCV 89.5 MCH 28.2 MCHC 31.5 L RDW 14.0 RDW Differential 44.8 H Plt Count 269 MPV 8.3 Immature Gran % (Auto) 0.000 Neut % (Auto) 71.1 H Lymph % (Auto) 14.9 L [place] % (Auto) 12.1 H Eos % (Auto) 1.7 Baso % (Auto) 0.2 Absolute Neuts (auto) 3.0 Absolute Lymphs (auto) 0.63 L Total Counted Not Reportable PT INR APTT Sodium Potassium Chloride Carbon Dioxide Anion Gap BUN Creatinine Estim Creat Clear Calc Est GFR (MDRD) Af Amer Est GFR (MDRD) Non-Af BUN/Creatinine Ratio Glucose Serum Osmolality Calcium Phosphorus Magnesium Total Bilirubin AST ALT Alkaline Phosphatase Troponin I Total Protein Albumin Globulin Albumin/Globulin Ratio TSH Cortisol Urine Color Urine Clarity Urine pH Ur Specific [place] Urine Protein Urine Glucose (UA) Urine Ketones Urine Occult Blood Urine Nitrite Urine Bilirubin Urine Urobilinogen Ur Leukocyte Esterase Urine RBC Urine WBC Ur Squamous Epith Cells Urine Bacteria Urine Mucus Urine Osmolality 339 Ur Random Sodium 61 03/09/18 03/09/18 06:35 06:35 WBC RBC Hgb Hct MCV MCH MCHC RDW RDW Differential Plt Count MPV Immature Gran % (Auto) Neut % (Auto) Lymph % (Auto) [place] % (Auto) Eos % (Auto) Baso % (Auto) Absolute Neuts (auto) Absolute Lymphs (auto) Total Counted PT INR APTT Sodium 139 Potassium 3.9 Chloride 109 H Carbon Dioxide 23.0 Anion Gap 7 BUN 16 Creatinine 0.82 Estim Creat Clear Calc 54.37 Est GFR (MDRD) Af Amer 91 Est GFR (MDRD) Non-Af 75 BUN/Creatinine Ratio 19.5 Glucose 72 L Serum Osmolality Calcium 7.5 L Phosphorus Magnesium Total Bilirubin AST ALT Alkaline Phosphatase Troponin I Total Protein Albumin Globulin Albumin/Globulin Ratio TSH Cortisol 19.50 Urine Color Urine Clarity Urine pH Ur Specific [place] Urine Protein Urine Glucose (UA) Urine Ketones Urine Occult Blood Urine Nitrite Urine Bilirubin Urine Urobilinogen Ur Leukocyte Esterase Urine RBC Urine WBC Ur Squamous Epith Cells Urine Bacteria Urine Mucus Urine Osmolality Ur Random Sodium Operations: None Procedures: EKG Summary of Care Provided: Patient is a 62-year-old female with a history of terminal metastatic adenocarcinoma, adrenal insufficiency, chronic anemia, [place]'s syndrome and hypertension. She has been getting chemotherapy with mitotaine and temsirolimus. Patient was admitted with a plan of headache as well as an nausea and vomiting on 03/08/2018. Sodium was found to be 129 on admission. She was admitted and managed for hyponatremia and headache. She was given IV fluids. Sodium corrected to 139. Labs otherwise remained stable. On further inquiry patient stated that she had been using a whole lot of pain medication such as [place] and Tylenol for her pain but the headache still persisted. I counseled patient that her headache may be due to medication overuse headache the patient stated that she could not stop using the pain meds she also stated that she has some photophobia with the pain. She felt comfortable to go home after sodium was corrected. Patient discharged home on 03/09/2018 with a prescription for Fioricet. OARRS checked and no red flags seen. Patient and stated that he felt she needed to take some time off of the chemotherapy as they knew that have malignancy was metastatic and terminal with no hope of acute and feels that the side effects she was getting from the chemotherapy mainly the nausea vomiting and the headache was too much for her to bear. They wanted to discuss this with Dr. Sanchez and would call his office to speak to him. Patient was discharged home on 03/09/18, to follow up with her PCP and oncologist. Discharge Activity: Return to Normal Activity Weight Bearing Status: Weight bearing as tolerated Call your doctor if you observe: - - worsening headache Home Medications: Medications to take at Discharge Nystatin 500,000U/5ML [Mycostatin] 5 ml PO 4X/DAY PRN PRN 07/14/15 Clonazepam [Klonopin] 1 mg PO TID PRN 09/15/15 Ondansetron [Zofran Odt] 8 mg PO Q8H PRN PRN #10 09/16/15 Levothyroxine [Synthroid] 75 mcg PO DAILY 10/18/15 Ipratropium/Albuterol Sulfate [Duoneb] 3 ml INHALATION Q4H PRN PRN 11/01/15 Potassium Chloride [K-Dur] 20 meq PO TID 03/28/16 traMADol [Ultram] 50 - 100 mg PO Q4H PRN PRN 03/28/16 Loperamide [Imodium] 2 mg PO Q6H PRN PRN 05/03/16 Hydrocortisone [Cortef] 10 mg PO LUNCH 06/12/16 Hydrocortisone [Cortef] 25 mg PO BREAKFAST 06/12/16 Magnesium Oxide [Mag-Ox 400] 400 mg PO DAILY 06/12/16 Bmx Liquid 10 ml PO Q4H PRN PRN 03/08/18 Dexamethasone [Decadron] 10 ml PO 4X/DAY PRN 03/08/18 DiphenhydrAMINE [Benadryl] 50 mg PO TID PRN PRN 03/08/18 Diphenoxylate HCl/Atropine [Diphenoxylate-Atrop 2.5-0.025] 1 - 2 each PO Q6H PRN PRN 03/08/18 Docusate Sodium [Colace] 100 mg PO DAILY 03/08/18 Fluticasone 0.05% [Flonase Nasal [place]] 2 spray NASAL DAILY 03/08/18 Hydrocodone Bitart/Apap 5-325 [[place] 5/325] 1 - 2 tablet PO Q6H PRN PRN Mitotane [Lysodren] 500 mg PO TID 03/08/18 [place]-3 Fatty Acids/Fish Oil [Fish Oil 1,000 mg Capsule] 1 each PO DAILY Pantoprazole Sodium [Protonix] 40 mg PO DAILY 03/08/18 Spironolactone [Aldactone] 50 mg PO BID 03/08/18 Acetaminophen/Butalbital/Caffe [Fioricet] 1 tablet PO Q4H PRN PRN #20 tablet 05/19 Following Prescrptions Were Given to Patient: Acetaminophen/Butalbital/Caffe [Fioricet] 1 tablet PO Q4H PRN PRN #20 tablet PRN Reason: Headache Please follow up with your Primary Care Physician in: one week Please Follow Up With: Kurt Sanchez DO When: one week Medical Necessity - Tobacco Use Smoking Status: Former smoker Meaningful Use Info Meaningful Use Diagnoses (Choose all that apply): None applicable Code Visit Inpatient E&M: 96940 Disch Hosp
[2018-03-10 16:17] LABS: Creatine Kinase MB 0 % (0-3); Creatine Kinase MM 100 % (97-100); Creatine Kinase,Total,Serum 66 U/L (24-173); Macro I 0 % (Not Observed); Macro II 0 % (Not Observed)
[2018-03-11 11:09] LABS: Creatine Kinase BB 0 % (0)
== END 2018-03-09 13:19 | disposition home or self-care (01) ==
LOC: ED 17:52 → MS3 21:17
PROVIDERS: Admitting Provider Internal Medicine; Emergency Provider Emergency Medicine; Family Provider Internal Medicine; PCP Internal Medicine; Visit Provider Student in an Organized Health Care Education/Training Program
DX: I10 Essential (primary) hypertension (principal); E87.6 Hypokalemia; E24.8 Other Cushing's syndrome; E66.9 Obesity, unspecified; Z68.32 Body mass index [BMI] 32.0-32.9, adult; Z71.3 Dietary counseling and surveillance; C74.90 Malignant neoplasm of unspecified part of unspecified adrenal gland; C78.7 Secondary malignant neoplasm of liver and intrahepatic bile duct; C78.00 Secondary malignant neoplasm of unspecified lung; R35.0 Frequency of micturition; Z79.899 Other long term (current) drug therapy; E86.0 Dehydration; E87.1 Hypo-osmolality and hyponatremia; R19.7 Diarrhea, unspecified; R11.2 Nausea with vomiting, unspecified; D64.9 Anemia, unspecified; Z87.01 Personal history of pneumonia (recurrent); Z86.14 Personal history of Methicillin resistant Staphylococcus aureus infection; F32.9 Major depressive disorder, single episode, unspecified; F41.9 Anxiety disorder, unspecified; E03.9 Hypothyroidism, unspecified
CPT/HCPCS: 36591; 70450; 71046; 80048; 80053; 81001; 82533; 82550; 82552; 83735; 83930; 83935; 84100; 84300; 84443; 84484; 85025; 85610; 85730; 87040; 87493; 96361; 96372; 96374; 96375; 96376; 99218; 99282; J7030; A4216; G0378; J2405